=== PATIENT | male | born 1970 | race Caucasian/White ===

== ENCOUNTER 2021-03-03 11:28 | Emergency (ER) | payer OTHER ==
[~2021-03-03 11:28] MED LIST: SODIUM CHLORIDE 0.9% 500 ML 500 ML in EMPTY BAG 1 BAG IV PRN
--- NOTE | 2021-03-03 12:43 | ED ---
General Adult HPI - General Chief complaint: Recheck/Abnormal Lab/Rx Stated complaint: Covid+/Antibodies Time Seen by Provider: 03/03/21 12:36 Source: patient, RN notes reviewed Mode of arrival: ambulatory Limitations: no limitations - History of Present Illness Initial comments: 50-year-old male presents from chief complaint of COVID-19. Patient is here for monoclonal antibodies. Patient states he has mild cough congestion no fever or chills body aches patient has no questions a chest pain and nausea and diarrhea constipation. - Related Data Allergies Allergy/AdvReac Type Severity Reaction Status Date / Time ciprofloxacin [From Cipro] Allergy Rash/Hives Verified 03/03/21 12:28 gluten Allergy Diarrhea Verified 03/03/21 12:28 Penicillins Allergy Unknown Verified 03/03/21 12:28 Review of Systems ROS Statement: Those systems with pertinent positive or pertinent negative responses have been documented in the HPI. ROS Other: All systems not noted in ROS Statement are negative. Past Medical History Past Medical History: Hyperlipidemia, Hypertension Additional Past Medical History / Comment(s): Diverticulitis History of Any Multi-Drug Resistant Organisms: None Reported Past Surgical History: Heart Catheterization With Stent Past Psychological History: No Psychological Hx Reported Smoking Status: Former smoker Past Alcohol Use History: Occasional Past Drug Use History: None Reported General Exam Limitations: no limitations General appearance: alert, in no apparent distress Head exam: Present: atraumatic, normocephalic, normal inspection Eye exam: Present: normal appearance, PERRL, EOMI. Absent: scleral icterus, conjunctival injection, periorbital swelling ENT exam: Present: normal exam, normal oropharynx, mucous membranes moist Neck exam: Present: normal inspection, full ROM. Absent: tenderness, meningismus, lymphadenopathy Respiratory exam: Present: normal lung sounds bilaterally. Absent: respiratory distress, wheezes, rales, rhonchi, stridor Cardiovascular Exam: Present: regular rate, normal rhythm, normal heart sounds. Absent: systolic murmur, diastolic murmur, rubs, gallop, clicks Course Vital Signs 03/03/21 03/03/21 12:29 14:00 Temperature 97.9 F 99.0 F Pulse Rate 91 78 Respiratory 18 16 Rate Blood Pressure 160/106 157/90 O2 Sat by Pulse 98 99 Oximetry Medical Decision Making - Medical Decision Making Patient received monoclonal antibodies will be discharged in stable condition. Disposition Clinical Impression: COVID-19 Disposition: HOME SELF-CARE Condition: Stable Instructions (If sedation given, give patient instructions): Coronavirus Disease 2019 (COVID-19) Additional Instructions: Please return to the Emergency Department if symptoms worsen or any other concerns. Is patient prescribed a controlled substance at d/c from ED?: No Referrals: None,Stated [Primary Care Provider] - 1-2 days Time of Disposition: 12:43
[2021-03-03] MEDS ORDERED: SODIUM CHLORIDE 0.9% 50 ML IVPB ONE (13:00)
[2021-03-03] MEDS ORDERED: CASIRIVIMAB/IMDEVIMAB (EUA) 1,200 MG in SODIUM CHLORIDE 0.9% 100 ML IVPB ONE (13:15)
[2021-03-03 14:19] VITALS: BP 157/90; PULSE 78; RESP 16; TEMP 99
== END 2021-03-03 15:26 | disposition home or self-care (01) ==
LOC: EC 11:28 → PROCWHC3 11:28 → EDSTATUS 13:46 → PROCWHC3 15:26 → EDSTATUS 15:38
DX: U07.1 COVID-19 (principal); I10 Essential (primary) hypertension; E78.5 Hyperlipidemia, unspecified; Z88.0 Allergy status to penicillin; Z88.1 Allergy status to other antibiotic agents; Z87.891 Personal history of nicotine dependence
CPT/HCPCS: 99283; 96360; Q0243; M0243